=== PATIENT | male | born 2005 | race Two or more races ===

== ENCOUNTER 2024-04-05 16:16 | Emergency (ER) | payer SELFPAY ==
[~2024-04-05] VITALS: Ht 193 cm; Wt 88.0 kg
[2024-04-05 16:55] VITALS: TEMP 99.8
[2024-04-05 20:40] VITALS: BP 120/72; PULSE 64; RESP 16; O2SAT 100
== END 2024-04-05 20:40 | disposition home or self-care (01) ==
LOC: ER 16:16
DX: S16.1XXA Strain of muscle, fascia and tendon at neck level, initial encounter (principal); S00.83XA Contusion of other part of head, initial encounter; S20.211A Contusion of right front wall of thorax, initial encounter; V89.2XXA Person injured in unspecified motor-vehicle accident, traffic, initial encounter; Y93.I9 Activity, other involving external motion; Y92.488 Other paved roadways as the place of occurrence of the external cause; Y99.8 Other external cause status